=== PATIENT | male | born 1980 ===

== ENCOUNTER 2017-08-02 21:27 | Emergency (ER) | payer BC, OTHER ==
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
--- NOTE | 2017-08-03 07:32 | RAD ---
INDICATION: Right rib injury. COMPARISON: There are no prior studies available for comparison. TECHNIQUE: 4 views of the right ribs and dual-energy PA views of the chest were obtained. FINDINGS: No fracture or significant focal osseous abnormality is seen. The heart is within normal limits in size. The lungs are clear. There is no evidence for pneumothorax or pleural effusion. IMPRESSION: NO EVIDENCE FOR FRACTURE, IF THE PATIENT'S SYMPTOMS PERSIST RECOMMEND FOLLOW-UP IMAGING.
== END 2017-08-02 22:43 | disposition left against medical advice (07) ==
LOC: UCEAST 21:27
DX: S09.93XA Unspecified injury of face, initial encounter (principal); R10.9 Unspecified abdominal pain; V44.5XXA Car driver injured in collision with heavy transport vehicle or bus in traffic accident, initial encounter; W22.10XA Striking against or struck by unspecified automobile airbag, initial encounter
CPT/HCPCS: 81003; 99202; G0463